=== PATIENT | female | born 1985 ===

== ENCOUNTER 2018-07-04 10:30 | Inpatient (IN) | payer OTHER ==
[~2018-07-04] VITALS: Ht 175.3 cm; Wt 86.2 kg
== END 2018-07-09 16:24 | disposition home or self-care (01) | DRG 807 ==
LOC: LDR 07-06 18:51 → OB/GYN 07-07 02:24
PROVIDERS: ADMIT Obstetrics & Gynecology
PROC: 10E0XZZ Delivery of Products of Conception, External Approach (ICD-10-PCS; principal; 2018-07-07)
PROC: 0W8NXZZ Division of Female Perineum, External Approach (ICD-10-PCS; 2018-07-07)
PROC: 4A1HXCZ Monitoring of Products of Conception, Cardiac Rate, External Approach (ICD-10-PCS; 2018-07-07)
DX: O80 Encounter for full-term uncomplicated delivery (principal); Z37.0 Single live birth; Z3A.38 38 weeks gestation of pregnancy